=== PATIENT | male | born 1945 | race Caucasian/White ===

== ENCOUNTER 2025-01-27 14:07 | Inpatient (IN) ==
[2025-01-27] MEDS: 0.9 % SODIUM CHLORIDE 1,000 ML IV ONE ×2 (15:50→17:07)
[2025-01-27 16:41] LABS: Creatine Kinase 88 U/L (24-195)
[2025-01-27 16:49] LABS: ALT/SGPT 78 U/L (<40); AST/SGOT 50 U/L (<40); Albumin 3.2 gm/dL (3.2-5.2); Albumin/Globulin Ratio 1.0 (1.0-2.3); Alkaline Phosphatase 128 U/L (39-117); Anion Gap 14.0 (8.0-16.0); Bilirubin,Total 0.5 mg/dL (0.1-1.0); Blood Urea Nitrogen 106 mg/dL (8-23); Calcium 7.5 mg/dL (8.6-10.4); Carbon Dioxide 24 mmol/L (22-30); Chloride 95 mmol/L (96-108); Globulin 3.1 gm/dL (2.2-3.7); Glucose 156 mg/dL (70-105); Potassium 3.2 mmol/L (3.3-5.1); Sodium 133 mmol/L (133-145)
[2025-01-27 18:35] LABS: Basophils # (Auto) 0.03 K/mcL (0.00-0.30); Basophils % (Auto) 0.3 % (0.0-2.0); Eosinophils # (Auto) 0.14 K/mcL (0.00-0.70); Eosinophils % (Auto) 1.2 % (0.0-7.0); Hematocrit 42.3 % (40.1-51.0); Hemoglobin 14.8 g/dL (13.7-17.5); Lymphocytes # (Auto) 0.68 K/mcL (1.50-4.80); Lymphocytes % (Auto) 6.0 % (15.5-49.0); Mean Corpuscular HGB Conc 35.0 g/dL (31.0-36.0); Monocytes # (Auto) 0.57 K/mcL (0.10-0.90); Monocytes % (Auto) 5.1 % (1.0-12.0); Neutrophils % (Auto) 86.5 % (38.0-78.0); RBC 4.73 M/mcL (4.63-6.08); WBC 11.3 K/mcL (4.5-11.0)
[2025-01-27 18:57] LABS: Bacteria,Urine Mod /hpf (0); Bilirubin,Urine NEGATIVE (Negative); Color,Urine LT. YELLOW; Glucose,Urine (UA) NEGATIVE (Negative); Ketones,Urine NEGATIVE (Negative); Leukocyte Esterase,Urine NEGATIVE /uL (Negative); PH,Urine 5.5 (5.0-9.0); Protein,Urine NEGATIVE (Negative); Specific Gravity,Urine 1.015 (1.000-1.035); Urobilinogen,Urine 0.2 mg/dL
[2025-01-27 20:45] LABS: Anion Gap 13.0 (8.0-16.0); Blood Urea Nitrogen 100 mg/dL (8-23); Calcium 6.9 mg/dL (8.6-10.4); Carbon Dioxide 21 mmol/L (22-30); Chloride 100 mmol/L (96-108); Glucose 116 mg/dL (70-105); Potassium 3.2 mmol/L (3.3-5.1); Sodium 134 mmol/L (133-145)
[2025-01-27] MEDS ORDERED: hydrALAZINE 20 MG/ML VIAL IV PRN (22:54)
[2025-01-27] MEDS ORDERED: ONDANSETRON 4 MG/2 ML VIAL IV PRN (22:54)
[2025-01-27] MEDS ORDERED: PROCHLORPERAZINE 10 MG/2 ML VIAL IV PRN (22:54)
[2025-01-27] MEDS ORDERED: IPRATROPIUM/ALBUTEROL 3 ML AMPUL.NEB NEB PRN (22:54)
[2025-01-27] MEDS ORDERED: LOPERAMIDE 2 MG CAPSULE PO PRN (22:54)
[2025-01-27] MEDS: 0.9 % SODIUM CHLORIDE 10 ML SYRINGE IV SCH (23:13)
[2025-01-27] MEDS: 0.9 % SODIUM CHLORIDE 1,000 ML IV SCH (23:13)
[2025-01-27] MEDS: HEPARIN 5,000 UNIT/ML VIAL SQ SCH (23:13)
[2025-01-27] MEDS: ACETAMINOPHEN 325 MG TABLET PO PRN (23:21)
[2025-01-28] MEDS: ACETAMINOPHEN 325 MG TABLET PO ONE (00:02)
[2025-01-28 07:32] LABS: Phosphorous 3.8 mg/dL (2.5-4.5)
[2025-01-28 07:34] LABS: Basophils # (Auto) 0.02 K/mcL (0.00-0.30); Basophils % (Auto) 0.3 % (0.0-2.0); Eosinophils # (Auto) 0.15 K/mcL (0.00-0.70); Eosinophils % (Auto) 2.0 % (0.0-7.0); Hematocrit 38.7 % (40.1-51.0); Hemoglobin 13.0 g/dL (13.7-17.5); Lymphocytes # (Auto) 0.77 K/mcL (1.50-4.80); Lymphocytes % (Auto) 10.3 % (15.5-49.0); Mean Corpuscular HGB Conc 33.6 g/dL (31.0-36.0); Monocytes # (Auto) 0.46 K/mcL (0.10-0.90); Monocytes % (Auto) 6.1 % (1.0-12.0); Neutrophils % (Auto) 79.8 % (38.0-78.0); Platelet Count 44 K/mcL (140-440); RBC 4.27 M/mcL (4.63-6.08); WBC 7.5 K/mcL (4.5-11.0)
[2025-01-28 09:00] LABS: ALT/SGPT 60 U/L (<40); AST/SGOT 37 U/L (<40); Albumin 2.7 gm/dL (3.2-5.2); Albumin/Globulin Ratio 1.0 (1.0-2.3); Alkaline Phosphatase 108 U/L (39-117); Anion Gap 11.0 (8.0-16.0); Bilirubin,Total 0.5 mg/dL (0.1-1.0); Blood Urea Nitrogen 88 mg/dL (8-23); Calcium 6.9 mg/dL (8.6-10.4); Carbon Dioxide 23 mmol/L (22-30); Chloride 101 mmol/L (96-108); Globulin 2.6 gm/dL (2.2-3.7); Glucose 109 mg/dL (70-105); Potassium 2.7 mmol/L (3.3-5.1); Sodium 135 mmol/L (133-145)
[2025-01-28] MEDS ORDERED: POTASSIUM CHLORIDE 40 MEQ in DEXTROSE 5% IN WATER 500 ML IV ONE (09:59)
[2025-01-28] MEDS: POTASSIUM CHLORIDE 10 MEQ/100 ML BAG IV SCH (11:12)
[2025-01-28] MEDS: POTASSIUM CHLORIDE 20 MEQ TABLET PO SCH (11:12)
[2025-01-28] MEDS: CALCIUM CARBONATE 500 MG TAB.CHEW CHEWED SCH (12:39)
[2025-01-28] MEDS ORDERED: LOPERAMIDE 2 MG CAPSULE PO PRN (15:01)
[2025-01-28] MEDS ORDERED: METOPROLOL SUCCINATE 100 MG PO SCH (21:00)
[2025-01-29 07:23] LABS: Phosphorous 2.7 mg/dL (2.5-4.5)
[2025-01-29 07:51] LABS: ALT/SGPT 61 U/L (<40); AST/SGOT 43 U/L (<40); Albumin 2.9 gm/dL (3.2-5.2); Albumin/Globulin Ratio 1.1 (1.0-2.3); Alkaline Phosphatase 98 U/L (39-117); Anion Gap 8.0 (8.0-16.0); Bilirubin,Total 0.5 mg/dL (0.1-1.0); Blood Urea Nitrogen 58 mg/dL (8-23); Calcium 7.4 mg/dL (8.6-10.4); Carbon Dioxide 26 mmol/L (22-30); Chloride 104 mmol/L (96-108); Globulin 2.7 gm/dL (2.2-3.7); Glucose 113 mg/dL (70-105); Potassium 3.1 mmol/L (3.3-5.1); Sodium 138 mmol/L (133-145)
[2025-01-29] MEDS: ASPIRIN 81 MG TAB.CHEW PO SCH (09:13)
[2025-01-29] MEDS: METOPROLOL SUCCINATE 50 MG TAB.XL.24H PO SCH (09:14)
[2025-01-29] MEDS: POTASSIUM CHLORIDE 20 MEQ TABLET PO SCH (09:20)
[2025-01-29 10:25] LABS: Basophils # (Auto) 0.06 K/mcL (0.00-0.30); Basophils % (Auto) 0.9 % (0.0-2.0); Eosinophils # (Auto) 0.15 K/mcL (0.00-0.70); Eosinophils % (Auto) 2.2 % (0.0-7.0); Hematocrit 38.2 % (40.1-51.0); Hemoglobin 13.0 g/dL (13.7-17.5); Lymphocytes # (Auto) 0.96 K/mcL (1.50-4.80); Lymphocytes % (Auto) 14.1 % (15.5-49.0); Mean Corpuscular HGB Conc 34.0 g/dL (31.0-36.0); Monocytes # (Auto) 0.49 K/mcL (0.10-0.90); Monocytes % (Auto) 7.2 % (1.0-12.0); Neutrophils % (Auto) 69.9 % (38.0-78.0); RBC 4.23 M/mcL (4.63-6.08); WBC 6.8 K/mcL (4.5-11.0)
[2025-01-29] MEDS ORDERED: POLYETHYLENE GLYCOL 3350 17 GM PACKET PO PRN (10:45)
[2025-01-29] MEDS ORDERED: SENNOSIDES/DOCUSATE SODIUM 1 TAB TABLET PO SCH (21:00)
[2025-01-29] MEDS ORDERED: DOCUSATE SODIUM 100 MG CAPSULE PO SCH (21:00)
== END 2025-01-29 16:31 | disposition home or self-care (01) | DRG 684 ==
LOC: ED 14:07 → MEDSUR 22:29
PROVIDERS: ADMIT Internal Medicine; ATTEND Internal Medicine